=== PATIENT | female | born 1940 | race Asian ===

== ENCOUNTER 2017-08-24 07:54 | Emergency (ER) | payer MEDICARE, OTHER ==
--- NOTE | 2017-08-24 08:31 | ED Physician Chart ---
ED Chief Complaint/HPI - Patient Information Date Seen:: 08/24/17 Time Seen:: 08:15 Chief Complaint:: GENERALIZED WEAKNESS, ANOREXIA FOR PAST 10 DAYS History of Present Illness:: THIS 76 YEAR OLD FEMALE TOOK A 15 DAY TOUR OF [place] WITH HER [employer] AND SHE DID A LOT OF WALKING (USES A CANE). RETURNED FROM [place] ON AUG 13 AND HAD LOSS OF APPETITE AND FOOD NOT TASTING RIGHT. HAS NAUSEA BUT NO VOMITING OR DIARRHEA. SHE WAS SEEN BY HER PMD, DR. MOJICA, AND HE OBTAINED A CXR THAT SHOWED PNEUMONIA. SHE WAS GIVEN A RX FOR A Z-JUSTIN AND TODAY IS HER 5TH DAY OF THE COURSE. SHE HAS HAD A COUGH PRODUCTIVE OF YELLOW SPUTUM. SHE ALSO HAS HAD A RUNNY NOSE. SHE DENIES ANY FEVER, CHILLS OR DIAPHORESIS. HAVING MILD RESPIRATORY DISTRESS BUT MAINLY FEELING WEAK AND NO APPETITE. DENIES ANY CHEST PAIN, ABDOMINAL PAIN OR HEADACHE. SHE ALSO HAD A RECENT LAB STUDY THAT SHOWED HER TO BE HYPONATREMIC. Allergies:: Allergies Allergy/AdvReac Type Severity Reaction Status Date / Time No Known Allergies Allergy Verified 08/24/17 08:04 Vitals:: Vital Signs - 8 hr 08/24/17 08:04 Temp 97.9 F HR 95 RR 18 BP 159/69 O2 Sat % 98 ED Review of Systems - Review of Systems General/Constitutional: No fever, No chills, Weakness, No diaphoresis, No edema , Loss of appetite Skin: No skin lesions, No rash, No bruising Head: No headache, No light-headedness Eyes: No loss of vision, No pain, No diplopia ENT: No earache, No sore throat, No tinnitus Neck: No neck pain, No swelling, No thyromegaly, No stiffness, No mass noted Cardio Vascular: No chest pain, No palpitations, No orthopnea, No edema Pulmonary: SOB, Cough, No sputum, No wheezing GI: Nausea, No vomiting, No diarrhea, No pain, No constipation, No hematemesis G/U: No dysuria, No frequency, No hematuria Musculoskeletal: No bone or joint pain, No back pain, No muscle pain Endocrine: No polyuria, No polydipsia Psychiatric: No prior psych history, No depression, No anxiety Hematopoietic: No bruising, No lymphadenopathy Allergic/Immuno: No urticaria, No angioedema Neurological: No syncope, No focal symptoms, Weakness, No paresthesia, No headache, No seizure, Dizziness, No confusion, No vertigo ED Past Medical History - Past Medical History Social History: Non Smoker, Employment:: BUT EXPOSED TO [employer] FROM . 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 LIVES WITH . Surgical History: other (TUBAL LIGATION, CERVICAL LAMINECTOMY, AND TONSILLECTOMY) ED Physical Exam - Physical Examination General/Constitutional: Awake, Well-developed, well-nourished, Alert, No distress, Non-toxic appearing, Ambulatory Other Gen/Cons comments:: AMBULATORY WITHOUT ASSISTANCE. Head: Atraumatic Eyes: Lids, conjuctiva normal, PERRL, EOMI Other Eyes comments:: CORNEA SHOWS MODERATE ARCUS IN BOTH EYES. Skin: Nl inspection, No rash, No skin lesions, No ecchymosis, No lymphadenopathy ENMT: External ears, nose nl, Nasal exam nl, Lips, teeth, gums nl, Oropharynx nl , Tonsils nl Neck: Nontender, Full ROM w/o pain, No JVD, No nuchal rigidity, No bruit, No mass, No stridor Other Neck comments:: WELL HEALED SURGICAL SCAR OVER LOWER C-SPINE Respiratory: Nl effort/Exclusion, Clear to Auscultation, No Wheeze/Rhonchi/Rales Cardio Vascular: RRR, No murmur, gallop, rubs, NL S1 S2 Other Cardio Vascular comments:: GOOD DISTAL PULSES IN ALL 4 EXTREMITIES. GI: No tenderness/rebounding/guarding, No organomegaly, No hernia, Normal BS's, Nondistended, No mass/bruits, No McBurney tenderness Other GI comments:: WELL HEALED VERTICAL SURGICAL SCARE JUST BELOW THE UMBILICUS. RECTAL EXAM DEFERRED AT MY DISCRETION. : No CVA tenderness Extremities: No tenderness or effusion, Full ROM, normal strength in all extremities, No edema, Normal digits & nails Other Extremities comments:: NO CALF TENDERNESS. NO ORELLANA'S SIGN. Neuro/Psych: Alert/oriented, Normal sensory exam, Normal motor strength, Judgement/insight normal, Mood normal, No focal deficits Misc: Normal back, No paraspinal tenderness ED Labs/Radiology/EKG Results - Lab Results Results: PORTABLE AP CHEST X-RAY, SINGLE VIEW. NO CARDIOMEGALY OR CHF. NO AREAS OF PULMONARY CONSOLIDATION NODULAR DENSITY IN LEFT LOWER LUNG ZONE MOST LIKELY NIPPLE SHADOW. NO MEDIASTINAL WIDENING. NO PNEUMOTHORAX. NO PLEURAL EFFUSIONS. IMPRESSION: NO ACUTE CARDIOPULMONARY FINDINGS. Laboratory Tests 08/24/17 08/24/17 08/24/17 08:45 08:45 08:45 WBC 6.0 RBC 3.55 L Hgb 11.8 L Hct 35.7 L MCV 100.6 H MCH 33.2 H MCHC Differential 33.0 RDW 13.0 Plt Count 359 MPV 7.3 Neutrophils % 69.9 Lymphocytes % 18.8 L Monocytes % 7.7 Eosinophils % 2.9 Basophils % 0.7 Sodium 121 L Potassium 3.6 Chloride 86 L Carbon Dioxide 25.2 Anion Gap 13.4 BUN 18 Creatinine 1.0 Est GFR ( Amer) TNP Est GFR (Non-Af Amer) TNP BUN/Creatinine Ratio 18.0 Glucose 91 Calcium 9.6 Total Bilirubin 0.6 AST 22 ALT 13 Alkaline Phosphatase 80 Troponin I 0.01 Total Protein 8.6 H Albumin 4.2 Globulin 4.4 Albumin/Globulin Ratio 1.0 The CBC is unremarkable with no leukocytosis and a mild anemia which is not clinically significant. Patient has a serum sodium of 121 and will follow up with her primary care physician. Her other electrolytes are within normal parameters except for a depressed chloride value. No function is normal. Liver function studies are normal. ED Assessment - Assessment General Assessment: CASE SUMMARY: This 76-year-old female returned from a tour of [place] with a chronic cough productive of yellow sputum and generalized weakness secondary to loss of appetite and not eating. She was given a course of azithromycin for an infiltrate seen on a chest x-ray. She denies having any fever, chills or diaphoresis. She has had no hemoptysis. Physical examination she is awake and alert and in no acute distress. Her lungs are clear to auscultation. Pulmonary examination was normal. She has no peripheral edema. Her chest x- ray in the emergency department was negative for any pulmonary infiltrates or areas of consolidation. The patient was treated with 2 L of normal saline for mild dehydration and hyponatremia. She will follow-up with Dr. Fofana's coming week for routine reevaluation. She was advised to return to the emergency department for any significant respiratory distress or worsening of her symptoms. Discharged in stable condition. MDM DDX COUGH AND WEAKNESS: NOT Pneumonia based on history, no fever, normal WBC count, and a CXR without infiltrates or consolidation. Patient oxygen saturation of 99-100% on room air. NOT foreign body aspiration based on history and exam. NOT pseudohyponatremia base on normal glucose level. NOT hypoglycemia base on serum glucose of 91. ED Septic Shock - . Is Septic Shock (SBP<90, OR Lactate>4 mmol\L) present?: No - <6hrs of presentation: Vital Signs: Vital Signs - 8 hr 08/24/17 08:04 Temp 97.9 F HR 95 RR 18 BP 159/69 O2 Sat % 98 ED Reassessment (Disposition) - Reassessment Reassessment Condition:: Unchanged - Diagnosis Diagnosis:: BRONCHITIS, HYPONATREMIA, DIABETES WITH GOOD CONTROL, GOUT, HYPERCHOLESTEROLEMIA. FOLLOW UP WITH DR. PRATER THIS COMING WEEK. TAKE YOUR LAB RESULTS WITH YOU WHEN YOU GO TO SEE HIM. RETURN TO THE ER IF YOUR SYMPTOMS BECOME SIGNIFICANTLY WORSE. - Aftercare/Follow up Instructions Aftercare/Follow-Up Instructions:: Counseled pt regarding lab results/diagnosis & need follow up, Counseled pt & family regarding lab results/diagnosis & need follow up - Patient Disposition Discharge/Transfer:: Home
[2017-08-24] MEDS ORDERED: Sodium Chloride 0.9% 1,000 ML IV ONE ×4 (08:38→09:16)
[2017-08-24 08:57] LABS: % BASOPHILS 0.7 % (0.0-2.0); % EOSINOPHILS 2.9 % (0.0-5.0); % LYMPHOCYTES 18.8 % (20.0-50.0); % MONOCYTES 7.7 % (2.0-10.0); % NEUTROPHILS 69.9 % (40.0-80.0); EOSINOPHILE ABSOLUTE 0.2 Th/cmm (0.1-0.4); HEMATOCRIT 35.7 % (41.0-60); HEMOGLOBIN 11.8 gm/dL (12-16); LYMPHOCYTE ABSOLUTE 1.1 Th/cmm (1.5-3.0); MEAN CELL VOLUME 100.6 fl (81-100); MEAN CORPUSCULAR HEMOGLOBIN 33.2 pg (27.0-31.0); MEAN PLATELET VOLUME 7.3 fl; MONOCYTE ABSOLUTE 0.5 Th/cmm (0.3-1.0); NEUTROPHILE ABSOLUTE 4.2 Th/cmm (1.8-8.0); PLATELET COUNT 359 Th/cmm (150-400); RED BLOOD COUNT 3.55 Mil/cmm (3.80-5.20)
--- NOTE | 2017-08-24 08:59 | Diagnostic Imaging Report ---
Portable chest x-ray Time: 0850 hours shortness of breath Allowing for portable technique the heart size is normal. No focal pulmonary parenchymal processes. No hilar or mediastinal abnormalities. Impression: No acute abnormalities.
[2017-08-24 09:11] LABS: ALBUMIN 4.2 gm/dL (3.7-5.3); ALKALINE PHOSPHATASE 80 U/L (34-104); ANION GAP 13.4 (7.0-16.0); BILIRUBIN,TOTAL 0.6 mg/dL (0.3-1.0); BUN - UREA NITROGEN 18 mg/dL (7-25); CALCIUM SERUM 9.6 mg/dL (8.6-10.3); CARBON DIOXIDE 25.2 mEq/L (21.0-31.0); CHLORIDE 86 mEq/L (98-107); GLUCOSE 91 mg/dL (70-105); POTASSIUM SERUM 3.6 mEq/L (3.5-5.1); SGOT 22 U/L (13-39); SGPT/ALT 13 U/L (7-52); SODIUM SERUM 121 mEq/L (136-145); TOTAL PROTEIN,SERUM 8.6 gm/dL (6.0-8.3)
[2017-08-24 09:42] LABS: URINE MICROSCOPIC INDICATED? YES; URINE SOURCE RANDOM
[2017-08-24 09:47] LABS: URINE BILIRUBIN NEGATIVE (NEGATIVE); URINE BLOOD NEGATIVE (NEGATIVE); URINE GLUCOSE (UA) NEGATIVE (NEGATIVE); URINE KETONE NEGATIVE (NEGATIVE); URINE LEUKOCYTE ESTERASE NEGATIVE (NEGATIVE); URINE NITRATE NEGATIVE (NEGATIVE); URINE PH 5.5 (4.6 - 8.0); URINE PROTEIN NEGATIVE (NEGATIVE); URINE UROBILINOGEN 0.2 E.U./dL (0.2 - 1.0)
[2017-08-24 10:04] LABS: URINE CLARITY CLEAR (CLEAR); URINE COLOR YELLOW
[2017-08-24 10:07] LABS: URINE BACTERIA OCCASIONAL /hpf (NONE SEEN); URINE EPITHELIAL CELLS OCCASIONAL /lpf (FEW); URINE RBC NONE SEEN /hpf (0-5); URINE WBC 0-2 /hpf (0-5)
== END 2017-08-24 10:43 | disposition home or self-care (01) ==
LOC: ER 07:54
DX: J40 Bronchitis, not specified as acute or chronic (principal); E87.1 Hypo-osmolality and hyponatremia; E11.9 Type 2 diabetes mellitus without complications; E78.00 Pure hypercholesterolemia, unspecified; M10.9 Gout, unspecified
CPT/HCPCS: 36415-UA; 71010-TC; 80053-TC; 81001-TC; 84484-TC; 85025-TC; J7030